=== PATIENT | male | born 1965 | race Caucasian/White ===

== ENCOUNTER 2019-04-10 17:15 | Emergency (ER) | payer MEDICARE, MEDICAID ==
[~2019-04-10] VITALS: Ht 172.7 cm; Wt 109.1 kg
[~2019-04-10 17:15] MED LIST: HYDR-3964 PO; RANI300T4 PO; SECU150S IM
[2019-04-10 18:35] LABS: EOSINOPHILS # (AUTO) 0.2 X10'3 (0-0.9); EOSINOPHILS % (AUTO) 2.3 % (0-6); MEAN CORPUSCULAR HGB CONC 33.9 g/dL (33.0-36.5); MEAN PLATELET VOLUME 8.9 FL (7.4-10.4); NEUTROPHILS # (AUTO) 4.5 X10'3 (1.8-7.7); WHITE BLOOD COUNT 8.9 X10'3 (4.5-11.0)
[2019-04-10 18:37] LABS: BASOPHILS # (AUTO) 0.1 X10'3 (0-0.2); BASOPHILS % (AUTO) 0.9 % (0-1); HEMATOCRIT 54.7 % (42.0-52.0); LYMPHOCYTES # (AUTO) 3.1 X10'3 (1.1-4.8); LYMPHOCYTES % (AUTO) 34.9 % (21-51); MEAN CORPUSCULAR HEMOGLOBIN 29.4 PG (27.0-31.0); MEAN CORPUSCULAR VOLUME 86.6 FL (78-98); MONOCYTES % (AUTO) 11.5 % (2-12); NEUTROPHILS % (AUTO) 50.4 % (42-75); PLATELET COUNT 215 X10'3 (140-440); RED BLOOD COUNT 6.31 X10'6 (4.70-6.10); RED CELL DISTRIBUTION WIDTH 14.8 % (11.5-14.5)
[2019-04-10 18:48] LABS: ALANINE AMINOTRANSFERASE 49 U/L (12-78); ALBUMIN 3.9 G/DL (3.4-5.0); ALBUMIN/GLOBULIN RATIO 0.8 (1.1-1.5); ALKALINE PHOSPHATASE 61 IU/L (46-116); ANION GAP 13 (8-16); ASPARTATE AMINO TRANSFERASE 28 U/L (10-37); BILIRUBIN,TOTAL 0.9 MG/DL (0.1-1.0); BLOOD UREA NITROGEN 25 MG/DL (7-18); BUN/CREATININE RATIO 17.7 (5.4-32.0); CALCIUM 9.4 MG/DL (8.5-10.1); CHLORIDE 101 MMOL/L (99-107); CREATININE 1.41 MG/DL (0.60-1.10); GLUCOSE 125 MG/DL (70-104); POTASSIUM 4.2 MMOL/L (3.5-5.1); SODIUM 134 MMOL/L (135-145); TOTAL CARBON DIOXIDE 19.9 MMOL/L (24-32); TOTAL PROTEIN 8.8 G/DL (6.4-8.2); eGFR 52 ML/MIN
--- NOTE | 2019-04-10 18:48 | NUR ---
Patient resting comfortably on gurney, no obvious distress. Reports feeling SOB, thinks it might be [email or web address]
[2019-04-10 18:51] LABS: PARTIAL THROMBOPLASTIN TIME 27 SECONDS (22-32)
[2019-04-10 19:16] LABS: HEMOGLOBIN 18.5 g/dl (14.0-17.9)
[2019-04-10 21:39] VITALS: BP 137/89
== END 2019-04-10 21:41 | disposition home or self-care (01) ==
LOC: ER 17:16
DX: R06.02 Shortness of breath (principal); D75.1 Secondary polycythemia; Z98.890 Other specified postprocedural states; Z79.899 Other long term (current) drug therapy
CPT/HCPCS: 36415; 71045; 80053; 83880; 84484; 85025; 85610; 85730; 93005; 99284

== ENCOUNTER 2024-06-05 13:58 | Emergency (ER) | payer MEDICARE, MEDICAID ==
[~2024-06-05] VITALS: Ht 175.3 cm; Wt 108.7 kg
[~2024-06-05 13:58] MED LIST changes: +FAMO40TA86 PO; -HYDR-3964 PO; +POTA-207 PO; -RANI300T4 PO
[2024-06-05 14:10] VITALS: BP 115/79; PULSE 92; TEMP 98.1; O2SAT 98
[2024-06-05] MEDS ORDERED: LEVO-65 PO (14:25)
[2024-06-05] MEDS: TETanus/Pertussis (Acell)/Diphther VAC/PF (Tdap-Adult) 0.5ml syringe IMVAC ONE (14:44)
[2024-06-05 14:46] VITALS: RESP 16
== END 2024-06-05 14:48 | disposition home or self-care (01) ==
LOC: ER 13:59
DX: S91.332A Puncture wound without foreign body, left foot, initial encounter (principal); Z79.899 Other long term (current) drug therapy; W22.8XXA Striking against or struck by other objects, initial encounter; Y93.89 Activity, other specified; Y92.89 Other specified places as the place of occurrence of the external cause; Y99.8 Other external cause status
CPT/HCPCS: 90715; 99283; G0008; 90471